=== PATIENT | male | born 1945 | race Caucasian/White ===

== ENCOUNTER 2021-03-31 21:34 | Emergency (ER) | payer MEDICARE, SELFPAY ==
[2021-03-31] VITALS (42 sets, daily range): BP systolic 73–169; BP diastolic 46–89; PULSE 59–78; RESP 16–53; TEMP 36.6–36.8; O2SAT 95–100; BMI 31.6
--- NOTE | 2021-03-31 21:36 | DI.RAD.S_ITS ---
PROCEDURE: XR CHEST 1V INDICATIONS: vomiting blood TECHNIQUE: One view of the chest was acquired. COMPARISON: None. FINDINGS: Surgical changes and devices: None. Lungs and pleura: Lungs are clear. No pleural effusions or pneumothorax. Mediastinum: Mediastinal contours appear normal. Heart size is normal. Bones and chest wall: No suspicious bony lesions. Overlying soft tissues appear unremarkable. IMPRESSION: No acute cardiopulmonary abnormality. Consider CT chest with IV contrast for further evaluation. Dictated by: Case Bravo M.D. on 03/31/2021 at 21:56 Approved by: Case Bravo M.D. on 03/31/2021 at 21:57
--- NOTE | 2021-03-31 21:37 | ED_ITS ---
HPI - GI Bleed General Chief complaint: GI Bleed Stated complaint: vomitting blood Time Seen by Provider: 03/31/21 21:44 History of Present Illness HPI Narrative: 75-year-old male history of Diehl's esophagus and hypertension presenting with bright red emesis. [place] bright red blood at that time decided to go home. He then proceeded to vomit at least 2 more times a soup pot full of bright red blood x2. He felt a little dizzy he has not passed out. He is not on any anticoagulation or aspirin. This is never happened to him before. He does admit that he drinks alcohol but he has no history of varices that he knows of. She denies any chest pain or shortness of breath. He states he has never passed out he got a little lightheaded. He is still making jokes. Discussion of code status at this time he is a full code. Patient presents with bright red blood dried all over his face chest and back. EMS reports initial blood pressure on scene was 84 over palp, progressively improved currently he has a blood pressure of 115/60. Cell phone [phone] or home PREFERRED phone [phone] or [phone] Related Data Allergies Allergy/AdvReac Type Severity Reaction Status Date / Time No Known Drug Allergies Allergy Verified 03/31/21 21:40 Review of Systems Review of Systems Narrative: GENERAL: + weakness. Denies chills, fatigue, malaise, fever, sweats, travel HEENT: Denies sinus pain, ear pain, sore throat, difficulty swallowing, neck pain RESPIRATORY: Denies dyspnea, cough, wheezing, hemoptysis, sputum. CARDIOVASCULAR: Denies chest pain, palpitations, orthopnea, edema GASTROINTESTINAL: See HPI : Denies dysuria, frequency, incontinence, hematuria, urinary retention, flank pain. MUSCULOSKELETAL: Denies weakness, joint pain, or bony pain SKIN: No rash, no erythema, no pruritus NEUROLOGIC: +lightheaded Denies dizziness, headache, numbness, change in speech, confusion PSYCHIATRIC: No concerning psychosocial issues. 12 point review of systems is negative except for those stated above and HPI Patient History Social History Smoking Status: Never smoker Exam Initial Vital Signs Initial Vital Signs: Vital Signs Pulse Rate 67 03/31/21 21:37 Respiratory Rate 26 H 03/31/21 21:37 Pulse Oximetry 98 03/31/21 21:37 GENERAL: Alert very pleasant 75-year-old male covered in dried bright red blood HEENT: Head atraumatic,EOMI, pupils reactive, face symmetric, moist mucous membranes CARDIOVASCULAR: Regular rate and rhythm without murmurs, rubs or gallops. RESPIRATORY: Breath sounds equal bilaterally, no wheezes rales or rhonchi. ABDOMEN: Soft, nontender. Normoactive bowel sounds all 4 quadrants. No guarding or rebound. : No CVA tenderness EXTREMITIES: Normal range of motion, no clubbing or edema. Neurovascularly intact NEUROLOGICAL: Alert and oriented x4.Normal gait and speech. SKIN: Warm, dry, no laceration, no petechiae, no rashes or lesions. Course Orders Ordered: ED Orders 03/31/21 21:35 COVID19 -Nasal swab/Pre-Proc Stat Complete Blood Count AUTO DIFF Stat Comprehensive Metabolic Panel Stat ETOH [Ethanol (ETOH)] Stat Lactate (Lactic Acid) Stat Packed Cells Stat Partial Thromboplastin Time Stat Prothrombin Time INR Stat Troponin & CK Cardiac Panel Stat Type and Screen Stat 03/31/21 21:36 XR chest 1V Stat EKG-12 Lead Stat Discontinued Medications Sodium Chloride (Normal Saline 0.9%) 1,000 mls @ 1,000 mls/hr IV BOLUS ONE Stop: 03/31/21 22:34 Last Admin: 03/31/21 21:48 Dose: 100 mls/hr Documented by: KAYLIN Octreotide Acetate 500 mcg/ (Sodium Chloride) 101 mls @ 5.05 mls/hr IV CONT LOUISA Last Infusion: 03/31/21 23:33 Dose: 25 mcg/hr, 5.05 mls/hr Documented by: Admin: 03/31/21 21:46 Dose: 25 mcg/hr, 5.05 mls/hr Documented by: KAYLIN Morphine Sulfate (Morphine 2 Mg/Ml Inj) 2 mg IV NOW ONE Stop: 03/31/21 23:21 Last Admin: 03/31/21 23:26 Dose: 2 mg Documented by: JACI Octreotide Acetate (Octreotide 100 Mcg/Ml Vial) 50 mcg IV NOW ONE Stop: 03/31/21 21:36 Last Admin: 03/31/21 21:47 Dose: 50 mcg Documented by: KAYLIN Ondansetron HCl (Ondansetron 4 Mg/2 Ml Inj) 4 mg IV NOW ONE Stop: 03/31/21 21:36 Last Admin: 03/31/21 21:44 Dose: 4 mg Documented by: KAYLIN Pantoprazole Sodium (Pantoprazole 40 Mg Vial) 40 mg IV NOW ONE Stop: 03/31/21 21:36 Last Admin: 03/31/21 21:43 Dose: 40 mg Documented by: KAYLIN Vital Signs Vital signs: Vital Signs - 8 hr 03/31/21 21:37 03/31/21 21:40 03/31/21 21:41 Temperature Pulse Rate 67 70 70 Respiratory Rate 26 H 36 H 16 Blood Pressure 136/70 115/60 Pulse Oximetry 98 100 98 03/31/21 21:45 03/31/21 21:50 03/31/21 21:55 Temperature Pulse Rate 72 69 61 Respiratory Rate 30 H 32 H 39 H Blood Pressure 132/64 103/63 Pulse Oximetry 95 97 95 03/31/21 21:56 03/31/21 22:00 03/31/21 22:01 Temperature Pulse Rate 64 66 69 Respiratory Rate 42 H 44 H 53 H Blood Pressure 102/79 96/67 Pulse Oximetry 95 95 95 03/31/21 22:05 03/31/21 22:10 03/31/21 22:15 Temperature Pulse Rate 65 62 62 Respiratory Rate 38 H 29 H 22 Blood Pressure 97/65 94/52 L 99/55 L Pulse Oximetry 97 97 97 03/31/21 22:20 03/31/21 22:21 03/31/21 22:24 Temperature Pulse Rate 63 63 63 Respiratory Rate 24 27 H Blood Pressure 73/50 L 137/89 Pulse Oximetry 96 97 97 03/31/21 22:25 03/31/21 22:26 03/31/21 22:30 Temperature Pulse Rate 63 63 65 Respiratory Rate 18 19 39 H Blood Pressure 85/52 L Pulse Oximetry 96 97 96 03/31/21 22:31 03/31/21 22:35 03/31/21 22:36 Temperature Pulse Rate 64 64 71 Respiratory Rate 30 H 45 H 42 H Blood Pressure 81/46 L 91/59 L Pulse Oximetry 96 96 96 03/31/21 22:38 03/31/21 22:40 03/31/21 22:41 Temperature 97.9 F Pulse Rate 78 61 64 Respiratory Rate 16 32 H 31 H Blood Pressure 91/59 L 109/58 L Pulse Oximetry 97 95 03/31/21 22:45 03/31/21 22:50 03/31/21 22:52 Temperature 98.1 F Pulse Rate 60 62 66 Respiratory Rate 28 H 47 H 16 Blood Pressure 92/53 L 105/61 105/61 Pulse Oximetry 97 98 03/31/21 22:54 03/31/21 22:55 03/31/21 22:56 Temperature 98.1 F Pulse Rate 61 62 60 Respiratory Rate 20 32 H 34 H Blood Pressure 105/61 85/70 L Pulse Oximetry 97 97 03/31/21 23:00 03/31/21 23:01 03/31/21 23:05 Temperature Pulse Rate 62 63 63 Respiratory Rate 27 H 35 H 36 H Blood Pressure 100/54 L 99/59 L Pulse Oximetry 97 97 97 03/31/21 23:08 03/31/21 23:10 03/31/21 23:15 Temperature 98.2 F Pulse Rate 66 65 62 Respiratory Rate 20 37 H 39 H Blood Pressure 99/59 L 101/58 L Pulse Oximetry 96 97 03/31/21 23:16 03/31/21 23:17 03/31/21 23:20 Temperature 98.1 F Pulse Rate 63 61 66 Respiratory Rate 41 H 20 45 H Blood Pressure 169/64 H 169/64 H Pulse Oximetry 96 97 03/31/21 23:21 03/31/21 23:25 03/31/21 23:26 Temperature Pulse Rate 65 59 L 65 Respiratory Rate 34 H 37 H 42 H Blood Pressure 112/59 L 144/63 H Pulse Oximetry 97 97 97 MDM - GI Bleed Lab Data Result diagrams: 03/31/21 21:35 03/31/21 21:35 Labs: Lab Results 03/31/21 03/31/21 03/31/21 Range/Units 21:35 21:35 21:35 WBC (4.5-11.0) X10^3/uL RBC (4.5-5.9) X10^6/uL Hgb (13.5-17.5) g/dL Hct (41-53) % MCV (80-100) fL MCH (26-34) PG MCHC (30-36) % RDW (11.6-14.8) % Plt Count (150-400) X10^3/uL Neut % (Auto) (50-75) % Lymph % (Auto) (25-40) % Craven % (Auto) (3-14) % Eos % (Auto) (2-4) % Baso % (Auto) (0-2) % Neut # (Auto) (9308-7499) /uL Lymph # (Auto) (6760-7085) /uL Craven # (Auto) (0-900) /uL Eos # (Auto) (0-450) /uL Baso # (Auto) (0-100) /uL PT (10.1-12.7) SECONDS INR (0.9-1.3) APTT (26.4-36.2) SECONDS Sodium (137-145) mmol/L Potassium (3.4-5.1) mmol/L Chloride (98-107) mmol/L Carbon Dioxide (22-32) mmol/L BUN (9-20) mg/dL Creatinine (0.66-1.25) mg/dL Estimated GFR (>60) mL/min BUN/Creatinine Ratio (6-22) Glucose (80-110) mg/dL Lactate 1.7 (0.7-2.1) mmol/L Calcium (8.4-10.2) mg/dL Total Bilirubin (0.2-1.3) mg/dL AST (17-59) IU/L ALT (<50) IU/L Alkaline Phosphatase (38-126) U/L Total Creatine Kinase 73 (55-170) U/L CK-MB (CK-2) TNP CK-MB (CK-2) Rel Index TNP Troponin I < 0.012 (0.01-0.034) ng/mL Total Protein (6.3-8.2) g/dL Albumin (3.5-5.0) g/dL Globulin (1.7-4.1) g/dL Albumin/Globulin Ratio (1.0-2.8) Ethyl Alcohol ( - 10) mg/dL SARS-CoV-2 (PCR) (Negative) Blood Type O Positive Antibody Screen Negative Crossmatch See Detail 03/31/21 03/31/21 03/31/21 Range/Units 21:35 21:35 21:35 WBC 11.5 H (4.5-11.0) X10^3/uL RBC 4.13 L (4.5-5.9) X10^6/uL Hgb 11.8 L (13.5-17.5) g/dL Hct 34.4 L (41-53) % MCV 83.4 (80-100) fL MCH 28.6 (26-34) PG MCHC 34.3 (30-36) % RDW 14.0 (11.6-14.8) % Plt Count 232 (150-400) X10^3/uL Neut % (Auto) 78.7 H (50-75) % Lymph % (Auto) 14.7 L (25-40) % Craven % (Auto) 5.2 (3-14) % Eos % (Auto) 1.0 L (2-4) % Baso % (Auto) 0.4 (0-2) % Neut # (Auto) 9100 H (0639-5631) /uL Lymph # (Auto) 1700 (7497-8447) /uL Craven # (Auto) 600 (0-900) /uL Eos # (Auto) 100 (0-450) /uL Baso # (Auto) 0 (0-100) /uL PT 13.6 H (10.1-12.7) SECONDS INR 1.2 (0.9-1.3) APTT 24 L (26.4-36.2) SECONDS Sodium 138 (137-145) mmol/L Potassium 4.8 (3.4-5.1) mmol/L Chloride 108 H (98-107) mmol/L Carbon Dioxide 25 (22-32) mmol/L BUN 38 H (9-20) mg/dL Creatinine 0.91 (0.66-1.25) mg/dL Estimated GFR > 60.0 (>60) mL/min BUN/Creatinine Ratio 41.8 H (6-22) Glucose 191 H (80-110) mg/dL Lactate (0.7-2.1) mmol/L Calcium 8.7 (8.4-10.2) mg/dL Total Bilirubin 0.4 (0.2-1.3) mg/dL AST 17 (17-59) IU/L ALT 13 (<50) IU/L Alkaline Phosphatase 69 (38-126) U/L Total Creatine Kinase (55-170) U/L CK-MB (CK-2) CK-MB (CK-2) Rel Index Troponin I (0.01-0.034) ng/mL Total Protein 5.3 L (6.3-8.2) g/dL Albumin 3.2 L (3.5-5.0) g/dL Globulin 2.1 (1.7-4.1) g/dL Albumin/Globulin Ratio 1.5 (1.0-2.8) Ethyl Alcohol ( - 10) mg/dL SARS-CoV-2 (PCR) (Negative) Blood Type Antibody Screen Crossmatch 03/31/21 03/31/21 Range/Units 21:35 21:35 WBC (4.5-11.0) X10^3/uL RBC (4.5-5.9) X10^6/uL Hgb (13.5-17.5) g/dL Hct (41-53) % MCV (80-100) fL MCH (26-34) PG MCHC (30-36) % RDW (11.6-14.8) % Plt Count (150-400) X10^3/uL Neut % (Auto) (50-75) % Lymph % (Auto) (25-40) % Craven % (Auto) (3-14) % Eos % (Auto) (2-4) % Baso % (Auto) (0-2) % Neut # (Auto) (0250-8030) /uL Lymph # (Auto) (4959-5148) /uL Craven # (Auto) (0-900) /uL Eos # (Auto) (0-450) /uL Baso # (Auto) (0-100) /uL PT (10.1-12.7) SECONDS INR (0.9-1.3) APTT (26.4-36.2) SECONDS Sodium (137-145) mmol/L Potassium (3.4-5.1) mmol/L Chloride (98-107) mmol/L Carbon Dioxide (22-32) mmol/L BUN (9-20) mg/dL Creatinine (0.66-1.25) mg/dL Estimated GFR (>60) mL/min BUN/Creatinine Ratio (6-22) Glucose (80-110) mg/dL Lactate (0.7-2.1) mmol/L Calcium (8.4-10.2) mg/dL Total Bilirubin (0.2-1.3) mg/dL AST (17-59) IU/L ALT (<50) IU/L Alkaline Phosphatase (38-126) U/L Total Creatine Kinase (55-170) U/L CK-MB (CK-2) CK-MB (CK-2) Rel Index Troponin I (0.01-0.034) ng/mL Total Protein (6.3-8.2) g/dL Albumin (3.5-5.0) g/dL Globulin (1.7-4.1) g/dL Albumin/Globulin Ratio (1.0-2.8) Ethyl Alcohol < 10 ( - 10) mg/dL SARS-CoV-2 (PCR) Negative (Negative) Blood Type Antibody Screen Crossmatch Imaging Data Chest x-ray: Radiologist's Impression: PROCEDURE:? XR CHEST 1V ? INDICATIONS:? vomiting blood ? TECHNIQUE:? One view of the chest was acquired.? ? COMPARISON:? None. ? FINDINGS:? ? Surgical changes and devices:? None.? ? Lungs and pleura:? Lungs are clear.? No pleural effusions or pneumothorax.? ? Mediastinum:? Mediastinal contours appear normal.? Heart size is normal.? ? Bones and chest wall:? No suspicious bony lesions.? Overlying soft tissues appear unremarkable.? ? IMPRESSION:? No acute cardiopulmonary abnormality. ? Consider CT chest with IV contrast for further evaluation. ? ? Dictated by: Case Bravo M.D. on 03/31/2021 at 21:56 ? ? ECG Data Interpretation: Normal sinus rhythm rate 68 [place] interval 162 QRS [address] changes or T-wave inversions Q-waves noted in lead 3 MDM Narrative Medical decision making narrative: Patient presents with obvious bright red hematemesis, no history of varices but does have history of Diehl's esophagus. Denies significant alcohol use or NSAIDs. He states this is never happened before. Blood pressure does decrease well in the ED emergent blood is given for blood pressure of 85. He is emergently transfused blood. He remains awake alert and seems to be mentating. He states that he is a full code. [place] tube is at bedside with octreotide drip is started empirically and he is given 1 dose of Protonix. Severe bed shortage, multiple local hospitals including [facility], [facility], [facility], [facility] and [facility] have been called he has been placed on some weakness but no current bed available 10:20pm-Dr. Estrada general surgery has been updated patient's symptoms and test results, at this time does not recommend any further treatment continue trying to transfer. If needed he is happy to come in and help assist with management of patient. 10:40 Dr. Mixon, building cleaning supervisor at [facility] has been updated on patient's symptoms test results, and graciously accepts patient for transfer. Airlifted unable to fly fixed wing also not available patient going by ground 2 UPRBC infused blood pressure improves steadily. No further episodes of hematemesis in the emergency department I discussed all findings with the patient and , Education has been performed regarding treatment plan, diagnosis, warning signs and symptoms and all concerns have been addressed. Verbally agree with and understood all of the above. Critical Care Time Critical Care Time Critical Care Time: Yes Total Critical Care Time: 45 Attestation: The high probability of a clinically significant, sudden or life threatening deterioration of the [cardiovascular] system(s) required my full and direct attention, intervention and personal management. The aggregate critical care time was [45] minutes. This time is in addition to time spent performing reported procedures but includes the following: [x] Data Review and interpretation [x] Patient assessment and monitoring of vital signs [x] Documentation [x] Medication orders and management Discharge Plan Departure Patient Disposition: [facility] Clinical Impression: Acute GI bleeding
[2021-03-31] MEDS: PANTOPRAZOLE 40 MG VIAL IV (21:43)
[2021-03-31] MEDS: ONDANSETRON 4 MG/2 ML INJ IV (21:44)
[2021-03-31] MEDS: OCTREOTIDE 500 MCG in SODIUM CHLORIDE 0.9% 100 ML 5.05 ML IV (21:46)
[2021-03-31] MEDS: OCTREOTIDE 100 MCG/ML VIAL 50 MCG IV (21:47)
[2021-03-31] MEDS: SODIUM CHLORIDE 0.9% 1,000 ML 100 ML IV (21:48)
[2021-03-31 21:55] LABS: Add Manual Diff / Slide Review NO; Basophils Absolute Auto 0 /uL (0-100); Basophils Percent Auto 0.4 % (0-2); Eosinophils Absolute Auto 100 /uL (0-450); Hematocrit 34.4 % (41-53); Hemoglobin 11.8 g/dL (13.5-17.5); Lymphocytes Absolute Auto 1700 /uL (1100-4500); Lymphocytes Percent Auto 14.7 % (25-40); Mean Corpuscular HGB Conc 34.3 % (30-36); Mean Corpuscular Hemoglobin 28.6 PG (26-34); Mean Corpuscular Volume 83.4 fL (80-100); Monocytes Absolute Auto 600 /uL (0-900); Monocytes Percent Auto 5.2 % (3-14); Neutrophils Absolute Auto 9100 /uL (1500-7000); Neutrophils Percent Auto 78.7 % (50-75); Platelet Count 232 X10^3/uL (150-400); Red Blood Cell Count 4.13 X10^6/uL (4.5-5.9); White Blood Cell Count 11.5 X10^3/uL (4.5-11.0)
--- NOTE | 2021-03-31 21:56 | PC.NURSE ---
0940 [facility], [facility], [facility], and [facility] are at capacity and are not accepting transfers at this time 0950 placed him on the list with [facility] to help find him a critical care bed
[2021-03-31 22:03] LABS: INR 1.2 (0.9-1.3); Prothrombin Time 13.6 SECONDS (10.1-12.7)
[2021-03-31 22:05] LABS: PTT Partial Thromboplastin Tim 24 SECONDS (26.4-36.2)
[2021-03-31 22:07] LABS: Lactate (Lactic Acid) 1.7 mmol/L (0.7-2.1)
[2021-03-31 22:08] LABS: Alanine Aminotransferase 13 IU/L (<50); Albumin 3.2 g/dL (3.5-5.0); Albumin Globulin Ratio 1.5 (1.0-2.8); Alkaline Phosphatase 69 U/L (38-126); Aspartate Aminotransferase 17 IU/L (17-59); BUN Creatinine Ratio 41.8 (6-22); Bilirubin Total 0.4 mg/dL (0.2-1.3); Blood Urea Nitrogen 38 mg/dL (9-20); Calcium 8.7 mg/dL (8.4-10.2); Carbon Dioxide 25 mmol/L (22-32); Chloride 108 mmol/L (98-107); Creatine Kinase 73 U/L (55-170); Estimated Glomerular Filt Rate > 60.0 mL/min (>60); Globulin 2.1 g/dL (1.7-4.1); Glucose 191 mg/dL (80-110); HEMOLYSIS < 15 (0-50); Potassium 4.8 mmol/L (3.4-5.1); Sodium 138 mmol/L (137-145); Total Protein 5.3 g/dL (6.3-8.2)
[2021-03-31 22:20] LABS: Troponin I < 0.012 ng/mL (0.01-0.034)
[2021-03-31 22:33] LABS: Ethanol (ETOH) < 10 mg/dL
[2021-03-31 22:46] LABS: COVID19 -Nasal RAPID Negative (Negative)
[2021-03-31] MEDS: MORPHINE 2 MG/ML INJ IV (23:26)
== END 2021-03-31 23:38 | disposition short-term general hospital (02) ==
PROVIDERS: Emergency Provider Emergency Medicine
DX: K92.2 Gastrointestinal hemorrhage, unspecified (principal); Z20.822 Contact with and (suspected) exposure to COVID-19
CPT/HCPCS: 36430; 71045; 80053; 80320; 82550; 83605; 84484; 85025; 85610; 85730; 86850; 86900; 86901; 87635; 93005; 96365; 96366; 96375; 99284; 99291; 99292; C9803; P9016; C9113; J2270; J2354; J2405